=== PATIENT | female | born 1980 | race American Indian/Alaskan Native ===

== ENCOUNTER 2018-06-07 07:56 | Emergency (ER) | payer OTHER ==
[2018-06-07 08:39] LABS: Bacteria,Urine 1+ /HPF (Negative); Bilirubin,Urine NEG (Negative); Blood,Urine MOD (Negative); Color,Urine Yellow (Yellow); Mucus,Urine FEW /HPF; Urobilinogen,Urine < 2.0 mg/dL (<2.0)
[2018-06-07 08:40] LABS: HCG Qualitative,Urine Negative (Negative)
[2018-06-07] MEDS ORDERED: NACL 0.9% 1000 ML 1,000 ML IV ONE (08:54)
[2018-06-07] MEDS ORDERED: ZOFRAN IV ONE (08:54)
--- NOTE | 2018-06-07 08:57 | Emergency Department Report ---
Vomiting/Diarrhea - HPI Chief Complaint: Abdominal Pain Stated Complaint: ABD PAIN/VOMITING/DIARRHEA Duration: 1 Day Nausea/Vomiting Severity: Mild Diarrhea Severity: Severe Pain Location: Generalized Pain Severity: None Symptoms: Yes Watery Diarrhea, Yes Able to Tolerate Fluids, No Bloody diarrhea, No Fever, No Recent Unusual Foods, No Recent Untreated Water, No Recent use of Antibiotics, No Family w/ Similar Symptoms, No Contacts w/ Similar Symptoms, No Rash, No Hematuria, No Recent URI Symptoms Other History: This is a 37 year-old female who presents with diffuse abdominal pain, nausea, vomiting, and diarrhea that started yesterday. Past medical history of ulcerative colitis. Patient states in the past she was taken mesalamine which has now . She reports the diarrhea is soft and l iquid without bleeding. Patient states yesterday she could not eat due to abdominal cramping. She decided to come in prior to bleeding. Patient states her stomach feel like something is pulling in 5. She denies fever, chest pain, shortness of breath, palpitations, frequency, urgency, dysuria, tarry stools. ED Review of Systems ROS: Stated complaint: ABD PAIN/VOMITING/DIARRHEA Other details as noted in HPI Constitutional: denies: chills, fever Respiratory: denies: cough, shortness of breath, wheezing Cardiovascular: denies: chest pain, palpitations Gastrointestinal: abdominal pain, nausea, vomiting, diarrhea. denies: constipation, hematemesis, melena, hematochezia Genitourinary: denies: urgency, dysuria, discharge Musculoskeletal: denies: back pain, joint swelling, arthralgia Neurological: denies: headache, weakness, paresthesias Psychiatric: denies: anxiety, depression ED Past Medical Hx - Past Medical History Previous Medical History?: Yes Additional medical history: Ulcerative Colitis - Surgical History Past Surgical History?: No - Social History Smoking Status: Never Smoker Substance Use Type: None - Medications Home Medications: Home Medications Medication Instructions Recorded Confirmed Last Taken Type Mesalamine 2.4 gm PO DAILY #60 tablet. 06/07/18 Unknown Rx Ondansetron [Zofran Odt] 4 mg PO Q8HR PRN #15 tab.jose 06/07/18 Unknown Rx Vomiting Diarrhea Exam - Exam General: Vital signs noted. No distress. Alert and acting appropriately. HEENT: Yes Pharyngeal Erythema (erythematous posterior pharynx, uvula midline), Yes Moist Mucous Membranes, No Pharyngeal Exudates, No Rhinorrhea, No Conjuctival Injection, No Frontal Tenderness, No Maxillary Tenderness Neck: No Adenopathy, No Rigidity Lungs: Yes Clear Lung Sounds, Yes Good Air Exchange, No Wheezes, No Stridor, No Cough, No Nasal Flaring, No Retractions, No Use of Accessory Muscles Heart exam: Regular: Yes, Murmur: No, Tachycardia: No Abdomen: Tenderness: Yes (RUQ, LUQ), Peritoneal Signs: No, Distention: No, Hyperactive Bowel sounds: No Skin exam: Rash: No, Edema: No, Normal turgor: Yes Neurologic: Alert and oriented, no deficits. Musculoskeletal: Unremarkable. ED Course Vital Signs 06/07/18 08:05 Temperature 98.8 F Pulse Rate 109 H Respiratory 16 Rate Blood Pressure 151/89 O2 Sat by Pulse 98 Oximetry ED Medical Decision Making - Lab Data Result diagrams: 06/07/18 09:01 06/07/18 09:01 Lab Results 06/07/18 06/07/18 06/07/18 Range/Units 08:20 09:01 09:01 WBC 10.8 (4.5-11.0) K/mm3 RBC 4.32 (3.65-5.03) M/mm3 Hgb 12.9 (10.1-14.3) gm/dl Hct 38.0 (30.3-42.9) % MCV 88 (79-97) fl MCH 30 (28-32) pg MCHC 34 (30-34) % RDW 14.2 (13.2-15.2) % Plt Count 407 (140-440) K/mm3 Lymph % (Auto) 11.6 L (13.4-35.0) % [place] % (Auto) 5.6 (0.0-7.3) % Eos % (Auto) 0.0 (0.0-4.3) % Baso % (Auto) 0.1 (0.0-1.8) % Lymph # 1.3 (1.2-5.4) K/mm3 Wake # 0.6 (0.0-0.8) K/mm3 Eos # 0.0 (0.0-0.4) K/mm3 Baso # 0.0 (0.0-0.1) K/mm3 Seg Neutrophils % 82.7 H (40.0-70.0) % Seg Neutrophils # 8.9 H (1.8-7.7) K/mm3 Sodium 138 (137-145) mmol/L Potassium 4.3 (3.6-5.0) mmol/L Chloride 103.5 (98-107) mmol/L Carbon Dioxide 24 (22-30) mmol/L Anion Gap 15 mmol/L BUN 9 (7-17) mg/dL Creatinine 0.6 L (0.7-1.2) mg/dL Estimated GFR > 60 ml/min BUN/Creatinine Ratio 15 % Glucose 146 H (65-100) mg/dL Calcium 8.8 (8.4-10.2) mg/dL Total Bilirubin 0.50 (0.1-1.2) mg/dL AST 13 (5-40) units/L ALT 7 (7-56) units/L Alkaline Phosphatase 72 (35-129) units/L Total Protein 8.1 (6.3-8.2) g/dL Albumin 4.1 (3.9-5) g/dL Albumin/Globulin Ratio 1.0 % Urine Color Yellow (Yellow) Urine Turbidity Cloudy (Clear) Urine pH 5.0 (5.0-7.0) Ur Specific [place] 1.020 (1.003-1.030) Urine Protein 30 mg/dl (Negative) mg/dL Urine Glucose (UA) 50 (Negative) mg/dL Urine Ketones Tr (Negative) mg/dL Urine Blood Mod (Negative) Urine Nitrite Neg (Negative) Urine Bilirubin Neg (Negative) Urine Urobilinogen < 2.0 (<2.0) mg/dL Ur Leukocyte Esterase Neg (Negative) Urine WBC (Auto) 7.0 H (0.0-6.0) /HPF Urine RBC (Auto) 12.0 (0.0-6.0) /HPF U Epithel Cells (Auto) 9.0 (0-13.0) /HPF Urine Bacteria (Auto) 1+ (Negative) /HPF Urine Mucus Few /HPF Urine HCG, Qual Negative (Negative) - Radiology Data Radiology results: report reviewed CT ABDOMEN AND PELVIS WITHOUT CONTRAST INDICATION: Diffuse abdominal pain. COMPARISON: None similar at this institution. FINDINGS: Noncontrast abdomen and pelvis CT performed. LUNG BASES: Borderline cardiomegaly. Slight nonspecific distal esophageal prominence/thickening. Right hemidiaphragm approximately 4 cm higher than the left. ABDOMEN: Please note that sensitivity to detect small visceral lesions is limited due to the absence of intravenous or oral contrast. A 0.8 cm calcified gallstone noted, axial image 76, series 2. Right hepatic lobe 17.6 cm in midclavicular length. Otherwise grossly unremarkable unenhanced liver, spleen, pancreas, adrenals, aorta, IVC and kidneys. Nonopacified GI tract evaluation limited, though grossly nonobstructive. Fluid/poorly formed stool along the colon, more so proximally. No ascites or definite size significant adenopathy. Tiny fat-containing umbilical hernia. PELVIS: IUD noted within a suspected myomatous uterus with the largest fibroid on the left superiorly approximately 6 cm as on axial image 162. Grossly unremarkable adnexa/ovaries and nonopacified rectosigmoid and urinary bladder. No free fluid or definite significant adenopathy. Few small bilateral inguinal lymph nodes measure up to 1.7 cm. Slight levocurvature apex about L1-L2. Bilateral SI joint degenerative changes with iliac aspect sclerosis noted. Nonspecific patchy sclerosis involving the right half of the L3 vertebra, axial image 107 as also noted centrally and to the right involving L2 vertebra as on axial images 93-94, amongst others. CONCLUSION: No acute significant CT abnormality on this unenhanced exam with various other findings as at the imaged lung bases, small gallstone, slightly prominent liver, possible diarrhea, IUD, uterine fibroids and nonspecific patchy sclerosis in L2 and L3 vertebral bodies, amongst others, as above. Please correlate. Thank you for the opportunity to participate in this patient's care. - Medical Decision Making Patient was examined by me. Vitals are normal and patient is in no acute distress. Obtained labs and CT of abdomen and pelvis. CT dictated by radiologist report reviewed by myself. All labs are unremarkable. No acute significant CT abnormality on this unenhanced exam with various other findings as at the imaged lung bases, small gallstone, slightly prominent liver, possible diarrhea, IUD, uterine fibroids and nonspecific patchy sclerosis in L2 and L3 vertebral bodies, amongst others, as above. Please correlate. Patient informed of results. Refill for mesalamine 1.2 g, take 4 tablets daily for history of colitis. Plan discussed with patient to discharge home and treat outpatient. He agrees with ER plan. Patient discharged home in stable condition. Follow up with PCP in 2-3 days. Critical care attestation.: If time is entered above; I have spent that time in minutes in the direct care of this critically ill patient, excluding procedure time. ED Disposition Clinical Impression: Nausea vomiting and diarrhea, History of colitis Disposition: TO HOME OR SELFCARE Is pt being admited?: No Does the pt Need Aspirin: No Condition: Stable Instructions: Abdominal Pain (ED), Ulcerative Colitis (ED) Prescriptions: Mesalamine 2.4 gm PO DAILY #60 tablet. Ondansetron [Zofran Odt] 4 mg PO Q8HR PRN #15 tab.rapdis PRN Reason: Nausea And Vomiting Referrals: NUZHAT DUPONT MD [Primary Care Provider] - 3-5 Days [facility], [facility] [Provider Group] - 3-5 Days [facility] [Provider Group] - 3-5 Days Forms: Work/School Release Form(ED), Accompanied Note Time of Disposition: 11:07
[2018-06-07 09:13] LABS: Basophils % (Auto) 0.1 % (0.0-1.8); Hemoglobin 12.9 gm/dl (10.1-14.3); Lymphocytes # (Auto) 1.3 K/mm3 (1.2-5.4); Lymphocytes % (Auto) 11.6 % (13.4-35.0); Mean Corpuscular HGB Conc 34 % (30-34); Mean Corpuscular Volume 88 fl (79-97); Monocytes # (Auto) 0.6 K/mm3 (0.0-0.8); Monocytes % (Auto) 5.6 % (0.0-7.3); Platelet Count 407 K/mm3 (140-440); Red Blood Count 4.32 M/mm3 (3.65-5.03); Red Cell Distribution Width 14.2 % (13.2-15.2)
[2018-06-07 09:35] LABS: Alanine Aminotransferase 7 units/L (7-56); Albumin 4.1 g/dL (3.9-5); BUN/Creatinine Ratio 15; Blood Urea Nitrogen 9 mg/dL (7-17); Calcium 8.8 mg/dL (8.4-10.2); Hemolysis Index 28
--- NOTE | 2018-06-07 09:53 | Cat Scan Report ---
CT ABDOMEN AND PELVIS WITHOUT CONTRAST INDICATION: Diffuse abdominal pain. COMPARISON: None similar at this institution. FINDINGS: Noncontrast abdomen and pelvis CT performed. LUNG BASES: Borderline cardiomegaly. Slight nonspecific distal esophageal prominence/thickening. Right hemidiaphragm approximately 4 cm higher than the left. ABDOMEN: Please note that sensitivity to detect small visceral lesions is limited due to the absence of intravenous or oral contrast. A 0.8 cm calcified gallstone noted, axial image 76, series 2. Right hepatic lobe 17.6 cm in midclavicular length. Otherwise grossly unremarkable unenhanced liver, spleen, pancreas, adrenals, aorta, IVC and kidneys. Nonopacified GI tract evaluation limited, though grossly nonobstructive. Fluid/poorly formed stool along the colon, more so proximally. No ascites or definite size significant adenopathy. Tiny fat-containing umbilical hernia. PELVIS: IUD noted within a suspected myomatous uterus with the largest fibroid on the left superiorly approximately 6 cm as on axial image 162. Grossly unremarkable adnexa/ovaries and nonopacified rectosigmoid and urinary bladder. No free fluid or definite significant adenopathy. Few small bilateral inguinal lymph nodes measure up to 1.7 cm. Slight levocurvature apex about L1-L2. Bilateral SI joint degenerative changes with iliac aspect sclerosis noted. Nonspecific patchy sclerosis involving the right half of the L3 vertebra, axial image 107 as also noted centrally and to the right involving L2 vertebra as on axial images 93-94, amongst others. CONCLUSION: No acute significant CT abnormality on this unenhanced exam with various other findings as at the imaged lung bases, small gallstone, slightly prominent liver, possible diarrhea, IUD, uterine fibroids and nonspecific patchy sclerosis in L2 and L3 vertebral bodies, amongst others, as above. Please correlate. Thank you for the opportunity to participate in this patient's care.
[2018-06-09 11:36] VITALS: BP 142/81
== END 2018-06-07 11:20 | disposition home or self-care (01) ==
LOC: ED 07:56
DX: R10.84 Generalized abdominal pain (principal); R11.2 Nausea with vomiting, unspecified; R19.7 Diarrhea, unspecified
CPT/HCPCS: 36415; 74176; 80053; 81001; 81025; 85025; 96361; 96374; 99284; J2405; J7030